=== PATIENT | male | born 1960 | race Caucasian/White ===

== ENCOUNTER 2018-09-14 13:13 | Emergency (ER) | payer MEDICAID ==
[2018-09-14] MEDS ORDERED: CELEXA20 MG PO (13:54)
[2018-09-14] MEDS ORDERED: GABAPENTIN300 M2 PO (13:54)
[2018-09-14] MEDS ORDERED: OLANZAPINE5 MG PO (13:54)
[2018-09-14] MEDS ORDERED: NALTREXONE50 MG PO (13:54)
[2018-09-14 14:00] VITALS: BP 131/90
== END 2018-09-14 14:01 | disposition home or self-care (01) ==
LOC: ED 13:13
DX: F41.9 Anxiety disorder, unspecified (principal)